=== PATIENT | male | born 1965 | race Caucasian/White ===

== ENCOUNTER 2019-05-22 15:42 | Emergency (ER) | payer OTHER, SELFPAY ==
[2019-05-22 15:48] VITALS: BP 131/84; PULSE 71; RESP 14; TEMP 36.4; O2SAT 98; BMI 39.5
--- NOTE | 2019-05-22 15:55 | DI.RAD.S_ITS ---
PROCEDURE: XR CHEST 1V INDICATIONS: CHEST PAIN TECHNIQUE: One view of the chest was acquired. COMPARISON: None. FINDINGS: Surgical changes and devices: None. Lungs and pleura: Lung volumes are low bilaterally. Streaky bibasilar opacities are favored to represent atelectasis. Hazy opacities at the costophrenic angles are worse on the left and may represent small pleural effusion. No pneumothorax. No focal consolidation. Mediastinum: Mediastinal contours appear normal. Heart size is normal. Bones and chest wall: No suspicious bony lesions. Overlying soft tissues appear unremarkable. IMPRESSION: Low lung volumes with mild streaky bibasilar opacities greater on the left. Findings likely represent atelectasis. Suggestion of possible small left pleural effusion. Dictated by: Scott Desai M.D. on 05/22/2019 at 15:57 Approved by: Scott Desai M.D. on 05/22/2019 at 15:59
[2019-05-22 16:00] VITALS: BP 146/74; PULSE 67; RESP 21; O2SAT 98
--- NOTE | 2019-05-22 16:19 | PC.NURSE ---
Pt AAOx3. ambulatory. reports substernal CP starting at 1530 described as sharp and constant without radiation. better with resting flat and worse with exertion. was helping family member move. only hx is hypothyroid which he controls with medication. lungs clear. placed on cardiac monitoring.IV placed and labs sent, EKG obtained. family at side. awaiting MD assessment
[2019-05-22] MEDS: ASPIRIN 81 MG CHEW TAB 324 MG PO (16:23)
[2019-05-22 16:28] LABS: Add Manual Diff / Slide Review NO; Basophils Absolute Auto 100 /uL (0-100); Basophils Percent Auto 0.8 % (0-2); Eosinophils Absolute Auto 200 /uL (0-450); Eosinophils Percent Auto 2.6 % (2-4); Hematocrit 40.4 % (41-53); Hemoglobin 14.1 g/dL (13.5-17.5); Lymphocytes Absolute Auto 2500 /uL (1100-4500); Lymphocytes Percent Auto 36.1 % (25-40); Mean Corpuscular HGB Conc 34.8 % (30-36); Monocytes Absolute Auto 500 /uL (0-900); Monocytes Percent Auto 7.3 % (3-14); Neutrophils Absolute Auto 3600 /uL (1500-7000); Neutrophils Percent Auto 53.2 % (50-75); Platelet Count 200 X10^3/uL (150-400); Red Blood Cell Count 4.39 X10^6/uL (4.5-5.9); Red Cell Distribution Width 12.5 % (11.6-14.8); White Blood Cell Count 6.8 X10^3/uL (4.5-11.0)
[2019-05-22 16:45] LABS: Alanine Aminotransferase 18 IU/L (21-72); Albumin 3.8 g/dL (3.5-5.0); Albumin Globulin Ratio 1.2 (1.0-2.8); Alkaline Phosphatase 73 U/L (38-126); Aspartate Aminotransferase 28 IU/L (17-59); Bilirubin Total 0.5 mg/dL (0.2-1.3); Blood Urea Nitrogen 23 mg/dL (9-20); Calcium 8.8 mg/dL (8.4-10.2); Carbon Dioxide 25 mmol/L (22-32); Chloride 106 mmol/L (98-107); Creatine Kinase 160 U/L (55-170); Estimated Glomerular Filt Rate > 60.0 mL/min (>60); Globulin 3.2 g/dL (1.7-4.1); Glucose 110 mg/dL (70-100); HEMOLYSIS < 15 (0-50); Lipase 101 U/L (23-300); Potassium 3.8 mmol/L (3.4-5.1); Sodium 139 mmol/L (137-145)
[2019-05-22 16:57] LABS: Troponin I < 0.012 ng/mL (0.01-0.034)
[2019-05-22 17:00] VITALS: BP 139/73; PULSE 65; RESP 13; O2SAT 97
[2019-05-22 17:01] LABS: CKMB % Relative Index 0.7 % (1.5-5.0); Creatine Kinase MB 1.05 ng/mL (<2.37)
[2019-05-22 17:30] VITALS: BP 138/76; PULSE 56; RESP 16; O2SAT 96
[2019-05-22 18:10] VITALS: BP 114/84; PULSE 60; RESP 17; O2SAT 98
--- NOTE | 2019-05-22 18:13 | PC.NURSE ---
Pt OOb to BR. UA obtained. 2nd troponin drawn and sent. pt noted to have small pleural effusion on CXR so fluids were never started. Order to be DC'd. Dr Ceron made aware and advised will be in to see momentarily
--- NOTE | 2019-05-22 18:21 | ED.CHESTPAIN ---
HPI - Chest Pain General Chief Complaint: Chest Pain Stated Complaint: Center Chest pains Time Seen by Provider: 05/22/19 18:02 Source: patient Mode of arrival: ambulatory Limitations: no limitations History of Present Illness HPI narrative: 54-year-old male here for evaluation of epigastric abdominal pain. Patient states that it started approximately an hour before arriving to the emergency department. He was sitting in his car at the time. He states it was a fairly sudden onset and sharp pain. Not worse with palpation or breathing or movement. States that it did radiate to his back. Stated the last approximately 40 minutes and then completely resolved. Was asymptomatic the time of my evaluation. He has never had any symptoms like this in the past. Has never had any gallbladder issues. Never had any cardiac issues. Does take omeprazole for reflux disease. Related Data Allergies Allergy/AdvReac Type Severity Reaction Status Date / Time No Known Drug Allergies Allergy Verified 05/22/19 15:48 Review of Systems Constitutional Constitutional: Denies fever(s) and Denies headache(s) ENT Ears, Nose, Mouth, and Throat: Denies headache(s) Cardiovascular Cardiovascular: Reports chest pain (Epigastric region) and Denies dyspnea Respiratory Respiratory: Denies dyspnea Gastrointestinal Gastrointestinal: Reports abdominal pain (Epigastric abdominal pain), Denies change in stool character, Denies nausea and Denies vomiting Genitourinary Genitourinary: Denies dysuria Musculoskeletal Musculoskeletal: Denies myalgias and Denies arthralgias Integumentary/Breasts Skin/Breast: Denies lesions and Denies rash Neurologic Neurologic: Denies behavioral changes and Denies headache(s) Psychiatric Psychiatric: Denies behavioral changes Hematologic/Lymphatic Hematologic/Lymphatic: Denies easy bleeding and Denies easy bruising Allergic/Immunologic Allergic/Immunologic: Denies urticaria [facility] Medical History Gastroesophageal reflux disease (Acute) Social History Smoking Status: Never smoker Social History Smoking Status: Never smoker Exam Initial Vital Signs Initial Vital Signs: Vital Signs Temperature 97.5 F L 05/22/19 15:48 Pulse Rate 71 05/22/19 15:48 Respiratory Rate 14 05/22/19 15:48 Blood Pressure 131/84 05/22/19 15:48 Pulse Oximetry 98 05/22/19 15:48 Const General: cooperative, well developed and well groomed Orientation: alert, awake and oriented x3 HENMT Head: normal to inspection and normocephalic Chest Chest: normal inspection of the chest, No crepitus and No tenderness Resp Effort & Inspection: normal respiratory effort Auscultation: clear to auscultation bilaterally Cardio Rate: regular rate Rhythm: regular rhythm GI Inspection: non-distended Palpation: soft, No firm and No tender Back/Spine/Pelvis Back: No CVA tenderness Skin Lesions: no lesions Rashes: no rashes Neuro General: awake Cognition: normal cognition Speech: speech normal Extrem General: normal to inspection, normal exam except as noted and No edema Psych Appearance: grossly normal and well kempt Scores GCS Ziggy coma scale eye opening: Spontaneous Ziggy coma scale verbal response: Orientated [place] coma scale motor response: Obey commands [place] coma scale total score: 15 HEART Score Heart Score history: Slightly Suspicious Heart Score EKG: Normal Heart Score Age: 45-64 years old Heart Score risk factors: 1-2 risk factors Heart Score troponin: < or = to normal limit Heart Score Total: 2 Course Orders Ordered: ED Orders 05/22/19 15:55 XR chest 1V Stat 05/22/19 16:15 Complete Blood Count AUTO DIFF Stat Comprehensive Metabolic Panel Stat Lipase Stat Troponin & CK Cardiac Panel Stat 05/22/19 18:15 Troponin I Stat 05/22/19 18:25 Urine Microscopic Stat Discontinued Medications Aspirin (Aspirin Chew) 324 mg PO NOW ONE Stop: 05/22/19 15:55 Last Admin: 05/22/19 16:23 Dose: 324 mg Documented by: EZEQUIEL Sodium Chloride (Normal Saline 0.9%) 1,000 mls @ 150 mls/hr IV CONT NIRMAL Last Admin: 05/22/19 18:15 Dose: Not Given Documented by: EZEQUIEL Vital Signs Vital signs: Vital Signs - 8 hr 05/22/19 15:48 05/22/19 16:00 05/22/19 17:00 Temperature 97.5 F L Pulse Rate 71 67 65 Respiratory Rate 14 21 13 Blood Pressure 131/84 Blood Pressure [Right Arm] 146/74 H 139/73 Pulse Oximetry 98 98 97 05/22/19 17:30 05/22/19 18:10 05/22/19 19:00 Temperature Pulse Rate 56 L 60 58 L Respiratory Rate 16 17 18 Blood Pressure Blood Pressure [Right Arm] 138/76 114/84 150/90 H Pulse Oximetry 96 98 100 MDM - Chest Pain Lab Data Attestation: I reviewed the patient's lab results. Result diagrams: 05/22/19 16:15 05/22/19 16:15 Labs: Lab Results 05/22/19 05/22/19 05/22/19 Range/Units 16:15 16:15 18:15 WBC 6.8 (4.5-11.0) X10^3/uL RBC 4.39 L (4.5-5.9) X10^6/uL Hgb 14.1 (13.5-17.5) g/dL Hct 40.4 L (41-53) % MCV 92.0 (80-100) fL MCH 32.0 (26-34) PG MCHC 34.8 (30-36) % RDW 12.5 (11.6-14.8) % Plt Count 200 (150-400) X10^3/uL Neut % (Auto) 53.2 (50-75) % Lymph % (Auto) 36.1 (25-40) % [place] % (Auto) 7.3 (3-14) % Eos % (Auto) 2.6 (2-4) % Baso % (Auto) 0.8 (0-2) % Neut # (Auto) 3600 (6909-1204) /uL Lymph # (Auto) 2500 (9674-0679) /uL [place] # (Auto) 500 (0-900) /uL Eos # (Auto) 200 (0-450) /uL Baso # (Auto) 100 (0-100) /uL Sodium 139 (137-145) mmol/L Potassium 3.8 (3.4-5.1) mmol/L Chloride 106 (98-107) mmol/L Carbon Dioxide 25 (22-32) mmol/L BUN 23 H (9-20) mg/dL Creatinine 1.00 (0.66-1.25) mg/dL Estimated GFR > 60.0 (>60) mL/min BUN/Creatinine Ratio 23.0 H (6-22) Glucose 110 H (70-100) mg/dL Calcium 8.8 (8.4-10.2) mg/dL Total Bilirubin 0.5 (0.2-1.3) mg/dL AST 28 (17-59) IU/L ALT 18 L (21-72) IU/L Alkaline Phosphatase 73 (38-126) U/L Total Creatine Kinase 160 (55-170) U/L CK-MB (CK-2) 1.05 (<2.37) ng/mL CK-MB (CK-2) Rel Index 0.7 L (1.5-5.0) % Troponin I < 0.012 < 0.012 (0.01-0.034) ng/mL Total Protein 7.0 (6.3-8.2) g/dL Albumin 3.8 (3.5-5.0) g/dL Globulin 3.2 (1.7-4.1) g/dL Albumin/Globulin Ratio 1.2 (1.0-2.8) Lipase 101 (23-300) U/L Urine RBC (0-5/HPF) Urine WBC (0-5/HPF) Ur Squamous Epith Cells (0-5/HPF) Urine Bacteria (None) Urine Mucus (Negative) Ur Culture Indicated? 05/22/19 Range/Units 18:25 WBC (4.5-11.0) X10^3/uL RBC (4.5-5.9) X10^6/uL Hgb (13.5-17.5) g/dL Hct (41-53) % MCV (80-100) fL MCH (26-34) PG MCHC (30-36) % RDW (11.6-14.8) % Plt Count (150-400) X10^3/uL Neut % (Auto) (50-75) % Lymph % (Auto) (25-40) % [place] % (Auto) (3-14) % Eos % (Auto) (2-4) % Baso % (Auto) (0-2) % Neut # (Auto) (0970-8314) /uL Lymph # (Auto) (0531-4433) /uL [place] # (Auto) (0-900) /uL Eos # (Auto) (0-450) /uL Baso # (Auto) (0-100) /uL Sodium (137-145) mmol/L Potassium (3.4-5.1) mmol/L Chloride (98-107) mmol/L Carbon Dioxide (22-32) mmol/L BUN (9-20) mg/dL Creatinine (0.66-1.25) mg/dL Estimated GFR (>60) mL/min BUN/Creatinine Ratio (6-22) Glucose (70-100) mg/dL Calcium (8.4-10.2) mg/dL Total Bilirubin (0.2-1.3) mg/dL AST (17-59) IU/L ALT (21-72) IU/L Alkaline Phosphatase (38-126) U/L Total Creatine Kinase (55-170) U/L CK-MB (CK-2) (<2.37) ng/mL CK-MB (CK-2) Rel Index (1.5-5.0) % Troponin I (0.01-0.034) ng/mL Total Protein (6.3-8.2) g/dL Albumin (3.5-5.0) g/dL Globulin (1.7-4.1) g/dL Albumin/Globulin Ratio (1.0-2.8) Lipase (23-300) U/L Urine RBC None seen (0-5/HPF) Urine WBC 1-5/hpf (0-5/HPF) Ur Squamous Epith Cells None seen (0-5/HPF) Urine Bacteria None seen (None) Urine Mucus 1+ H (Negative) Ur Culture Indicated? Cult not indicated Urine Dip Bedside Urine Glucose Negative Bedside Urine Bilirubin - Negative Bedside Urine Ketone +/- 5 Urine Specific [place] 1.030 Bedside Urine Occult Blood - Negative Bedside Urine pH 6.0 Bedside Urine Protein +/- 15 Bedside Urine Urobilinogen +/- 1mg Bedside Urine Nitrite - Negative Bedside Urine Leukocytes +/- 15 Esterase Imaging Data Chest x-ray: Radiologist's impression: [address] [address] XRay Report Signed Patient: Frank Cole#: [id number] : 1965Acct:[id number] Age/Sex: 54 / MDate of Service: 05/22/19 Loc: ED Accession Number: [id number] Procedure: XR chest 1V Ordering Provider: Nereyda Broussard D.O. PROCEDURE: XR CHEST 1V INDICATIONS: CHEST PAIN TECHNIQUE: One view of the chest was acquired. COMPARISON: None. FINDINGS: Surgical changes and devices: None. Lungs and pleura: Lung volumes are low bilaterally. Streaky bibasilar opacities are favored to represent atelectasis. Hazy opacities at the costophrenic angles are worse on the left and may represent small pleural effusion. No pneumothorax. No focal consolidation. Mediastinum: Mediastinal contours appear normal. Heart size is normal. Bones and chest wall: No suspicious bony lesions. Overlying soft tissues appear unremarkable. IMPRESSION: Low lung volumes with mild streaky bibasilar opacities greater on the left. Findings likely represent atelectasis. Suggestion of possible small left pleural effusion. Dictated by: Scott Desai M.D. on 05/22/2019 at 15:57 Approved by: Scott Desai M.D. on 05/22/2019 at 15:59 ECG Data Attestation: I personally reviewed and interpreted this ECG as follows: Prior ECG tracings: not available for review Interpretation: Sinus rhythm Ventricular rate is 72 Normal axis Normal QRS Normal QTC No ST T wave changes MDM Narrative Medical decision making narrative: Patient asymptomatic the time of arrival. Was epigastric pain. His LFTs and lipase are unremarkable. Will hold on any further workup for potential gallbladder disease. His EKG is unremarkable. Chest x-ray shows no signs of pneumonia. I do not feel that the other findings on the chest x-ray of the results of were causing his symptoms today. Has a heart score of 2. I did discuss risk stratification with the patient. Informed him that he should contact his primary provider tomorrow to discuss follow-up. We discussed return precautions and follow-up instructions. Patient expressed understanding and agreement with plan. Discharge Plan Departure Patient Disposition: Home Clinical Impression: Atypical chest pain, Abdominal pain, acute, epigastric Discharge Date/Time: 05/22/19 19:27 Instructions: DI for Atypical Chest Pain, DI for Epigastric Pain Activity Restrictions/Additional Instructions: Continue all of your medications as directed. I do recommend you contact your primary provider for follow-up. Return to the emergency department for any new or worsening symptoms Referrals: Radha Mayfield [Primary Care Provider] -
[2019-05-22 18:37] LABS: Bacteria Urine None Seen; RBC Urine None Seen (0-5/HPF)
[2019-05-22 18:42] LABS: Troponin I < 0.012 ng/mL (0.01-0.034)
[2019-05-22 18:49] LABS: Culture Indicated Urine Cult Not Indicated; Mucus Urine 1+ (Negative); Squamous Epithelial Cell Urine None Seen (0-5/HPF); WBC Urine 1-5/HPF (0-5/HPF)
[2019-05-22 19:00] VITALS: BP 150/90; PULSE 58; RESP 18; O2SAT 100
== END 2019-05-22 19:27 | disposition home or self-care (01) ==
PROVIDERS: Emergency Medicine; Emergency Provider Emergency Medicine; PCP Physician Assistant Medical
DX: R07.89 Other chest pain (principal); R10.13 Epigastric pain
CPT/HCPCS: 36591; 71045; 80053; 81003; 81015; 82550; 82553; 83690; 84484; 85025; 93005; 93041; 99283; 99285

== ENCOUNTER 2021-02-01 14:11 | Emergency (ER) | payer OTHER, SELFPAY ==
[2021-02-01 14:32] VITALS: BP 154/114; PULSE 99; RESP 18; TEMP 36.9; O2SAT 99; BMI 42.8
--- NOTE | 2021-02-01 14:38 | DI.RAD.S_ITS ---
PROCEDURE: XR KNEE RT 3V INDICATIONS: atruamtic pain, swelling and redness. TECHNIQUE: 3 views of the knee were acquired. COMPARISON: None. FINDINGS: Bones: No fractures or dislocations. No suspicious bony lesions. Soft tissues: No joint effusion. No suspicious soft tissue calcifications. IMPRESSION: No source of pain is identified. No effusion or loose body is seen. Dictated by: Josr Cordova M.D. on 02/01/2021 at 15:05 Approved by: Josr Cordova M.D. on 02/01/2021 at 15:05
[2021-02-01 15:13] LABS: Add Manual Diff / Slide Review NO; Basophils Absolute Auto 0 /uL (0-100); Basophils Percent Auto 0.4 % (0-2); Eosinophils Absolute Auto 100 /uL (0-450); Eosinophils Percent Auto 0.4 % (2-4); Hematocrit 40.8 % (41-53); Hemoglobin 13.9 g/dL (13.5-17.5); Lymphocytes Absolute Auto 2100 /uL (1100-4500); Lymphocytes Percent Auto 15.6 % (25-40); Mean Corpuscular HGB Conc 34.1 % (30-36); Mean Corpuscular Hemoglobin 31.8 PG (26-34); Mean Corpuscular Volume 93.2 fL (80-100); Monocytes Absolute Auto 1000 /uL (0-900); Monocytes Percent Auto 7.7 % (3-14); Neutrophils Absolute Auto 10300 /uL (1500-7000); Neutrophils Percent Auto 75.9 % (50-75); Platelet Count 189 X10^3/uL (150-400); Red Blood Cell Count 4.38 X10^6/uL (4.5-5.9); Red Cell Distribution Width 12.5 % (11.6-14.8); White Blood Cell Count 13.6 X10^3/uL (4.5-11.0)
[2021-02-01 15:18] LABS: INR 1.3 (0.9-1.3); Prothrombin Time 14.9 SECONDS (10.1-12.7)
[2021-02-01 15:21] LABS: PTT Partial Thromboplastin Tim 29 SECONDS (26.4-36.2)
[2021-02-01 15:28] LABS: Erythrocyte Sedimentation Rate 30 MM/HR (0-15)
[2021-02-01 15:40] LABS: HEMOLYSIS < 15 (0-50); Procalcitonin 0.15 ng/mL (<0.5)
[2021-02-01 15:42] LABS: Alanine Aminotransferase 16 IU/L (<50); Albumin 3.9 g/dL (3.5-5.0); Albumin Globulin Ratio 1.1 (1.0-2.8); Alkaline Phosphatase 73 U/L (38-126); Aspartate Aminotransferase 22 IU/L (17-59); BUN Creatinine Ratio 17.5 (6-22); Bilirubin Total 1.1 mg/dL (0.2-1.3); Blood Urea Nitrogen 21 mg/dL (9-20); Calcium 9.2 mg/dL (8.4-10.2); Carbon Dioxide 26 mmol/L (22-32); Chloride 103 mmol/L (98-107); Estimated Glomerular Filt Rate > 60.0 mL/min (>60); Globulin 3.5 g/dL (1.7-4.1); Glucose 111 mg/dL (70-100); Lipase 41 U/L (23-300); Potassium 4.3 mmol/L (3.4-5.1); Sodium 136 mmol/L (137-145); Total Protein 7.4 g/dL (6.3-8.2)
[2021-02-01 15:43] LABS: Lactate (Lactic Acid) 0.9 mmol/L (0.7-2.1)
[2021-02-01] MEDS: KETOROLAC 30 MG/ML VIAL IM (17:09)
[2021-02-01 17:13] LABS: Uric Acid 5.7 mg/dL (3.5-8.5)
--- NOTE | 2021-02-01 17:14 | ED_ITS ---
HPI - Extremity Problem General Chief complaint: Extremity Problem,Nontraumatic Stated complaint: right leg swollen Time Seen by Provider: 02/01/21 17:00 Source: patient Mode of arrival: Ambulatory Limitations: no limitations History of Present Illness HPI Narrative: 55M non smoker without significant medical history presents with family in the chief complaint of slowly increasing pain to the skin of his right anterior knee. He had a subjective fever and some chills a few days ago. He denies any history of cellulitis nor obvious injuries or breaks in the skin. He denies any falls or twisting injuries. He denies any recent travel, history of clot or cancer. His pain bothersome most at night, particularly when he is rolling over in bed skin of his anterior knee is pressed. He does have some pain when he flexes the knee but states it is not within the joint itself only the anterior skin. There is no significant swelling. His pain is worse when he moves and improves with rest. He denies any history of gout, and takes no blood thinners MD Complaint: extremity pain Onset (ago): day(s) Pain Consistency: constant Location: right Quality: burning Radiation: none Relieving factors: rest Exacerbating factors: range of motion, weight bearing, walking and palpation Associated symptoms: fever Related Data Previous Rx's Medication Instructions Recorded cephalexin 500 mg PO Q6H 7 Days #28 cap 02/01/21 ketorolac 10 mg PO Q6H PRN #14 tab 02/01/21 Allergies Allergy/AdvReac Type Severity Reaction Status Date / Time No Known Drug Allergies Allergy Verified 02/01/21 14:38 Review of Systems Constitutional Constitutional: Reports chills, Denies fatigue, Reports fever(s), Denies frequent falls, Denies lethargy and Denies weakness Eyes Eyes: Denies change in vision, Denies eye discharge, Denies irritation and Denies loss of vision ENT Ears, Nose, Mouth, and Throat: Denies change in voice, Denies dizziness, Denies neck pain, Denies sore throat and Denies throat swelling Cardiovascular Cardiovascular: Denies chest pain, Denies irregular heart rhythm, Denies lightheadedness, Denies palpitations, Denies dyspnea, Denies dyspnea on exertion and Denies orthopnea Respiratory Respiratory: Denies cough, Denies dyspnea, Denies dyspnea on exertion and Denies wheezing Gastrointestinal Gastrointestinal: Denies abdominal pain, Denies change in bowel habits, Denies diarrhea, Denies nausea and Denies vomiting Musculoskeletal Musculoskeletal: Denies neck pain and Denies numbness Integumentary/Breasts Skin/Breast: Denies pruritus, Reports erythema, Denies rash, Reports skin pain, Reports skin swelling and Denies wounds Neurologic Neurologic: Denies behavioral changes, Denies confusion, Denies dizziness, Denies frequent falls, Denies loss of vision, Denies numbness and Denies weakness Psychiatric Psychiatric: Denies anxiety, Denies behavioral changes, Denies confusion, Denies depression, Denies homicidal ideation and Denies suicidal ideation Endocrine Endocrine: Denies fatigue, Denies flushing and Denies palpitations Hematologic/Lymphatic Hematologic/Lymphatic: Denies easy bruising Allergic/Immunologic Allergic/Immunologic: Denies urticaria, Denies throat swelling and Denies wheezing Patient History Medical History Gastroesophageal reflux disease Social History Smoking Status: Never smoker Smoking Status: Never smoker alcohol intake frequency: a few times a month Substance Use Type: does not use Exam Narrative Exam Narrative: GEN: AOx3 and in mild distress EYES: Pupils are equal, round, and reactive to light and accommodation. Extraoccular muscles are intact bilaterally. There is no subconjunctival hemorrhage or exudate. CHEST: Lungs are clear to auscultation bilaterally and free of wheezes, rales, or rhonchi. Heart rate is regular rhythm, there are no murmurs, clicks, rubs, or gallops. There is no chest wall tenderness. ABD: Abdomen is soft and nontender. There is no guarding or rebound. Bowel sounds are normal in all 4 quadrants. There is no mass or organomegaly. EXT: Full, mildly painful active range of motion of the right knee. No effusion. No pain in calf or medial thigh SKIN: Skin of anterior R knee is warm, red and painful, not circumferential. Minimal swelling, no red streaks, induration, fluctuanace or drainage. Initial Vital Signs Initial Vital Signs: Vital Signs Temperature 98.4 F 02/01/21 14:32 Pulse Rate 99 H 02/01/21 14:32 Respiratory Rate 18 02/01/21 14:32 Blood Pressure 154/114 H 02/01/21 14:32 Pulse Oximetry 99 02/01/21 14:32 Course Orders Ordered: ED Orders 02/01/21 14:38 XR knee RT 3V Stat 02/01/21 15:00 CRP [C-Reactive Protein Quant] Stat Complete Blood Count AUTO DIFF Stat Comprehensive Metabolic Panel Stat Erythrocyte Sedimentation Rate Stat Lactate (Lactic Acid) Stat Lipase Stat Partial Thromboplastin Time Stat Procalcitonin Stat Prothrombin Time INR Stat Uric Acid Stat Discontinued Medications Ketorolac Tromethamine (Ketorolac 30 Mg/Ml Vial) 30 mg IM NOW ONE Stop: 02/01/21 17:03 Last Admin: 02/01/21 17:09 Dose: 30 mg Documented by: CTRSELWYN Vital Signs Vital signs: Vital Signs - 8 hr 02/01/21 14:32 Temperature 98.4 F Pulse Rate 99 H Respiratory Rate 18 Blood Pressure 154/114 H Pulse Oximetry 99 MDM - Extremity (Nontraumatic) Lab Data Result diagrams: 02/01/21 15:00 02/01/21 15:00 Labs: Lab Results 02/01/21 02/01/21 02/01/21 Range/Units 15:00 15:00 15:00 WBC 13.6 H (4.5-11.0) X10^3/uL RBC 4.38 L (4.5-5.9) X10^6/uL Hgb 13.9 (13.5-17.5) g/dL Hct 40.8 L (41-53) % MCV 93.2 (80-100) fL MCH 31.8 (26-34) PG MCHC 34.1 (30-36) % RDW 12.5 (11.6-14.8) % Plt Count 189 (150-400) X10^3/uL Neut % (Auto) 75.9 H (50-75) % Lymph % (Auto) 15.6 L (25-40) % [place] % (Auto) 7.7 (3-14) % Eos % (Auto) 0.4 L (2-4) % Baso % (Auto) 0.4 (0-2) % Neut # (Auto) 08384 H (8420-4154) /uL Lymph # (Auto) 2100 (4701-4797) /uL [place] # (Auto) 1000 H (0-900) /uL Eos # (Auto) 100 (0-450) /uL Baso # (Auto) 0 (0-100) /uL ESR (0-15) MM/HR PT 14.9 H (10.1-12.7) SECONDS INR 1.3 (0.9-1.3) APTT 29 (26.4-36.2) SECONDS Sodium 136 L (137-145) mmol/L Potassium 4.3 (3.4-5.1) mmol/L Chloride 103 (98-107) mmol/L Carbon Dioxide 26 (22-32) mmol/L BUN 21 H (9-20) mg/dL Creatinine 1.20 (0.66-1.25) mg/dL Estimated GFR > 60.0 (>60) mL/min BUN/Creatinine Ratio 17.5 (6-22) Glucose 111 H (70-100) mg/dL Lactate (0.7-2.1) mmol/L Calcium 9.2 (8.4-10.2) mg/dL Total Bilirubin 1.1 (0.2-1.3) mg/dL AST 22 (17-59) IU/L ALT 16 (<50) IU/L Alkaline Phosphatase 73 (38-126) U/L C-Reactive Protein (<1.0) mg/dL Total Protein 7.4 (6.3-8.2) g/dL Albumin 3.9 (3.5-5.0) g/dL Globulin 3.5 (1.7-4.1) g/dL Albumin/Globulin Ratio 1.1 (1.0-2.8) Lipase 41 (23-300) U/L Procalcitonin 0.15 (<0.5) ng/mL 02/01/21 02/01/21 02/01/21 Range/Units 15:00 15:00 15:00 WBC (4.5-11.0) X10^3/uL RBC (4.5-5.9) X10^6/uL Hgb (13.5-17.5) g/dL Hct (41-53) % MCV (80-100) fL MCH (26-34) PG MCHC (30-36) % RDW (11.6-14.8) % Plt Count (150-400) X10^3/uL Neut % (Auto) (50-75) % Lymph % (Auto) (25-40) % [place] % (Auto) (3-14) % Eos % (Auto) (2-4) % Baso % (Auto) (0-2) % Neut # (Auto) (8292-0269) /uL Lymph # (Auto) (5958-3151) /uL [place] # (Auto) (0-900) /uL Eos # (Auto) (0-450) /uL Baso # (Auto) (0-100) /uL ESR 30 H (0-15) MM/HR PT (10.1-12.7) SECONDS INR (0.9-1.3) APTT (26.4-36.2) SECONDS Sodium (137-145) mmol/L Potassium (3.4-5.1) mmol/L Chloride (98-107) mmol/L Carbon Dioxide (22-32) mmol/L BUN (9-20) mg/dL Creatinine (0.66-1.25) mg/dL Estimated GFR (>60) mL/min BUN/Creatinine Ratio (6-22) Glucose (70-100) mg/dL Lactate 0.9 (0.7-2.1) mmol/L Calcium (8.4-10.2) mg/dL Total Bilirubin (0.2-1.3) mg/dL AST (17-59) IU/L ALT (<50) IU/L Alkaline Phosphatase (38-126) U/L C-Reactive Protein 20.0 H (<1.0) mg/dL Total Protein (6.3-8.2) g/dL Albumin (3.5-5.0) g/dL Globulin (1.7-4.1) g/dL Albumin/Globulin Ratio (1.0-2.8) Lipase (23-300) U/L Procalcitonin (<0.5) ng/mL MDM Narrative Medical decision making narrative: Multiple diagnoses considered including cellulitis, DVT, and gout as well as septic arthritis. The patient has a full, largely painless range of motion of the knee, no circumferential erythema and no effusion. Septic arthritis is very unlikely as is gouty arthritis. DVT considered but minimal wrist, no pain in the calf or popliteal region or medial thigh. Discharge Plan Departure Patient Disposition: Home Clinical Impression: Cellulitis of knee, right Instructions: DI for Cellulitis -- Adult Activity Restrictions/Additional Instructions: *You have been diagnosed with [cellulitis of the right anterior knee] *What to do: *Please continue to take your regular medications as directed. [x ] New medication prescriptions sent to your pharmacy: [[facility] in [place] ] [ ] New medication written as a paper prescription [ ] No new medications given *Please follow up with your primary care provider in 2-3 days, call for an appointment. Let them know you were seen in the Emergency Department and that we ask that you be seen in follow up. We will electronically transmit a record of today's note if your PCP is in our system *If you do not have a primary care provider please contact the [facility] Resource line at [phone]. They will ask some questions about your medical history and help get you set up with a doctor in the community. *Return to Emergency Department if you should have any new, worsening or concerning symptoms, such as [fever greater than 101 F, shaking chills, worsening pain, persistent vomiting or other bothersome symptoms] Prescriptions: New ketorolac 10 mg tablet 10 mg PO Q6H PRN (Reason: pain) Qty: 14 RF: 0 cephalexin 500 mg capsule 500 mg PO Q6H 7 Days Qty: 28 RF: 0 Referrals: Radha Mayfield PA-C [Primary Care Provider] -
[2021-02-01 17:28] VITALS: BP 124/72; PULSE 101; RESP 22; O2SAT 97
== END 2021-02-01 17:29 | disposition home or self-care (01) ==
PROVIDERS: Emergency Medicine; Emergency Provider Emergency Medicine; PCP Physician Assistant Medical
DX: L03.115 Cellulitis of right lower limb (principal); R50.9 Fever, unspecified
CPT/HCPCS: 36415; 73562; 80053; 83605; 83690; 84145; 84550; 85025; 85610; 85651; 85730; 86140; 96372; 99284; J1885

== ENCOUNTER → 2021-10-05 12:25 | Outpatient (CLI) | payer OTHER, SELFPAY ==
[2021-10-05 13:26] LABS: BUN Creatinine Ratio 15.1 (6-22); Blood Urea Nitrogen 19 mg/dL (9-20); Calcium 9.2 mg/dL (8.4-10.2); Carbon Dioxide 21 mmol/L (22-32); Chloride 109 mmol/L (98-107); Glucose 107 mg/dL (70-100); HEMOLYSIS < 15 (0-50); Potassium 3.9 mmol/L (3.4-5.1); Sodium 141 mmol/L (137-145)
[2021-10-05 14:43] LABS: Clostridium Difficile Tox PCR Negative for C. diff (Negative)
== END ==
PROVIDERS: PCP Physician Assistant Medical; Referring Provider Physician Assistant; Visit Provider Physician Assistant
DX: R19.7 Diarrhea, unspecified (principal)
CPT/HCPCS: 36415; 80048; 87045; 87177; 87493; 87899

== ENCOUNTER → 2024-07-08 08:59 | Outpatient (CLI) | payer OTHER, SELFPAY ==
[2024-07-08 09:48] LABS: COVID-19 CEPHEID 4-PLEX PCR Negative (Negative); Influenza A - CEPHEID Flu A NEGATIVE (NEGATIVE); Influenza B - CEPHEID Flu B NEGATIVE (NEGATIVE); Respiratory Syncytial Virus Negative (Negative)
== END ==
PROVIDERS: PCP Physician Assistant Medical; Referring Provider Physician Assistant Medical; Visit Provider Physician Assistant Medical
DX: R05.1 Acute cough (principal); J06.9 Acute upper respiratory infection, unspecified
CPT/HCPCS: 0241U